=== PATIENT | male | born 1995 | race Caucasian/White ===

== ENCOUNTER 2019-07-30 13:28 | Emergency (ER) | payer OTHER ==
[~2019-07-30] VITALS: Ht 172.7 cm; Wt 74.8 kg
== END 2019-07-30 18:47 | disposition home or self-care (01) ==
LOC: ER 13:28
DX: S60.222A Contusion of left hand, initial encounter (principal); S60.221A Contusion of right hand, initial encounter; S60.212A Contusion of left wrist, initial encounter; S60.211A Contusion of right wrist, initial encounter; V19.9XXA Pedal cyclist (driver) (passenger) injured in unspecified traffic accident, initial encounter; Y93.89 Activity, other specified; Y92.89 Other specified places as the place of occurrence of the external cause; Y99.8 Other external cause status

== ENCOUNTER 2021-10-29 21:36 | Emergency (ER) | payer OTHER ==
[~2021-10-29] VITALS: Ht 172.7 cm; Wt 77.1 kg
[2021-10-30] MEDS ORDERED: OSEL75CA PO (03:11)
[2021-10-30] MEDS ORDERED: ZYNCOF 20-400120 ML PO (03:11)
[2021-10-30] MEDS ORDERED: DOLOGESIC-DF 51 EACH PO (03:11)
== END 2021-10-30 03:23 | disposition home or self-care (01) ==
LOC: ER 21:36
DX: J11.1 Influenza due to unidentified influenza virus with other respiratory manifestations (principal); B34.9 Viral infection, unspecified; R50.9 Fever, unspecified; Z20.822 Contact with and (suspected) exposure to COVID-19